=== PATIENT | female | born 1960 | race Caucasian/White ===

== ENCOUNTER 2016-05-31 09:15 | Emergency (ER) | payer OTHER ==
--- NOTE | ~2016-05-31 | ER ---
PATIENT'S NAME: CARMENCITA [facility] AGE: 56 Y [address] ROOM: [place], [place] [address] LOCATION: [facility] ADMIT DATE: 05/31/2016 ER/Outpatient Report DISCHARGE DATE: 05/31/2016 FAMILY PHYSICIAN: PHYSICIAN, NO ATTENDING PHYSICIAN: Jim Hurt CHIEF COMPLAINT: Bloody diarrhea. HISTORY OF PRESENT ILLNESS: The patient is originally from [facility], but has been in the [place] since mid January. She has been having some stomach issues for which she has seen Dr. Andrew. 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 She has been otherwise doing relatively well, but has lost some weight while in the [place]. This is reported to be normal according to the patient's daughter, who does the translating for us. The patient reports some abdominal discomfort and diarrhea, which started after which she felt was a bout of constipation. Over the last 24 hours, she feels like the stool has become more bloody, which had not previously been. They deny any fevers, but the patient does have some difficulty keeping some things down. She feels nauseated at all times. She did have some vomiting. She denies a history of abdominal surgery other than an ovary removal. She is a former smoker. She does have some concerns for possible cancer. PAST MEDICAL HISTORY: Documented on the record and reviewed by me. SOCIAL HISTORY: Documented on the record and reviewed by me. MEDICATIONS: Documented on the record and reviewed by me. ALLERGIES: DOCUMENTED ON THE RECORD AND REVIEWED BY ME. REVIEW OF SYSTEMS: All systems were reviewed and negative except as noted in the HPI. PHYSICAL EXAMINATION: VITAL SIGNS: Blood pressure 147/66, pulse is 69, respiratory rate is 16, temperature 98.3, SpO2 is 98% on room air. Pain is rated at 8/10. GENERAL: Age-appropriate female, resting comfortably on the exam table, reclined in mild pain. No distress. NEUROLOGIC: The patient is awake and alert. She moves all extremities PATIENT'S NAME: CARMENCITA GABRIELA [facility] AGE: 56 Y [address] ROOM: [place], [place] [address] LOCATION: [facility] ADMIT DATE: 05/31/2016 ER/Outpatient Report DISCHARGE DATE: 05/31/2016 FAMILY PHYSICIAN: PHYSICIAN, NO ATTENDING PHYSICIAN: Jim Hurt appropriately. No asymmetry on exam. GCS appears to be 15. HEENT: Normocephalic, atraumatic. Eyes are PERRL. Oropharynx is clear. Moist without erythema or exudates. NECK: Supple. Trachea is midline. CHEST/HEART: Regular rate and rhythm with no murmurs. LUNGS: Clear to auscultation bilateral with no rhonchi, wheezes, or rales. ABDOMEN: Soft with initial tenderness but that subsides with persistent re- examination. Bowel sounds are present in all 4 quadrants. No masses. No rebound or guarding. BACK: Nontender. EXTREMITIES: Warm and well perfused. RECTAL: With some hemorrhoids. No evidence of blood. No stool in the rectal vault. No masses appreciated. LABORATORY DATA: Labs are notable for the following; the stool is notable for many white blood cells with Hemoccult positive findings. Giardia and Cryptosporidium are negative. CBC: WBC is 12.8, with neutrophilia, absolute neutrophil count 10.7, hematocrit is 31, platelets of 235. INR is 1. CMS: Low sodium of 131 down from 133. Few weeks ago on Kamran's office; creatinine is 1.0, GFR is 57. CRP is 7.7. Amylase and lipase; amylase is 217 and lipase is 161. Blood type is O positive. Serum lactate 0.9. IMAGING: None. IMPRESSION: 1. Acute diarrhea, bloody. 2. Abdominal pain, not otherwise specified. EMERGENCY DEPARTMENT COURSE: The patient was seen and evaluated as above. I do not think that she has a chest cause of her current presentation with diarrhea and bloody stools. She does have multiple reasons for gastritis as she has polymyalgia rheumatica and is on multiple medications for same. I did obtain records from Dr. Andrew's office and the patient has been diagnosed with gastritis relatively recently. She does have a history of being anxious as well. Overall, the patient appears to be hemodynamically stable. She is given Zofran and a GI cocktail with some improvement in her discomfort to a 6, which she states is tolerable for her. I discussed imaging at length with the patient via her daughter. At this time, her presentation is not consistent with ischemic bowel based on the duration of symptoms, though diarrhea has only started in the last day or so. The rest of her symptoms have been present for quite a while. The patient does have some concerns about possible cancer and I explained that a CT scan for colon cancer would not be useful. PATIENT'S NAME: GABRIELA TSE [facility] AGE: 56 Y [address] ROOM: [place] [id number] LOCATION: ED ADMIT DATE: 05/31/2016 ER/Outpatient Report DISCHARGE DATE: 05/31/2016 FAMILY PHYSICIAN: PHYSICIAN, VY ATTENDING PHYSICIAN: Jim Hurt We did speak at some length and it was agreed upon that the patient will be discharged with stool studies pending. I did contact the patient's son-in- law, Ernie with results of those. They will continue to encourage fluids and will return if things are worsening. The patient is scheduled to go back to [facility] later this week. All questions were answered and the patient was discharged. MD JUDIE STEWART/anuj /[id number] d: 06/01/16101 t: 06/08/16 215, OUTPATIENT REPORT
[2016-05-31 10:04] LABS: BASOPHIL % 0.2 %; EOSINOPHIL % 0.1 %; HEMOGLOBIN 10.7 g/dL (10.0-15.0); IMMATURE GRANULOCYTE # 0.1 K/uL (0.0-0.3); IMMATURE GRANULOCYTE % 0.5 %; LYMPHOCYTE # 1.4 K/uL (0.8-4.0); LYMPHOCYTE % 11.2 %; MCH 28.8 pg (27.0-34.0); MCHC 34.5 gm/dL (32.0-36.5); MCV 83.6 fl (83.0-98.0); MONOCYTE # 0.6 K/uL (0.0-1.0); MONOCYTE % 4.5 %; MPV 8.9 fl (9.4-12.4); NEUTROPHIL # (ANC) 10.7 K/uL (1.8-7.8); NEUTROPHIL % 83.5 %; NRBC % 0 /100WBC (0-0.00); PLATELET COUNT 235 K/uL (150-450); RBC 3.71 M/uL (3.50-5.50); RDW-CV 14.6 % (11.9-14.6); WBC 12.8 K/uL (4.0-11.0)
[2016-05-31 10:20] LABS: PROTIME 10.5 SECONDS (9.8-11.4); PTT 25 SECONDS (25-32)
[2016-05-31 10:28] LABS: ALBUMIN 3.4 gm/dL (3.5-5.0); ANION GAP 9.9 (10.0-19.0); CALCIUM 8.4 mg/dL (8.5-10.5); TOTAL BILIRUBIN 0.5 mg/dL (0.0-1.5); TOTAL PROTEIN 6.4 g/dL (6.0-8.4)
[2016-05-31 10:31] LABS: POTASSIUM 3.9 mMol/L (3.7-5.1)
== END 2016-05-31 12:22 | disposition disaster alternative care site (69) ==
LOC: GMED 09:15
PROVIDERS: Emergency Medicine
DX: K92.1 Melena (principal); R10.9 Unspecified abdominal pain; I10 Essential (primary) hypertension; Z90.721 Acquired absence of ovaries, unilateral; Z87.891 Personal history of nicotine dependence
CPT/HCPCS: J2405; J7030